=== PATIENT | male | born 1980 | race Caucasian/White ===

== ENCOUNTER 2016-04-20 07:48 | Emergency (ER) | payer BC ==
[2016-04-20] MEDS ORDERED: SODIUM CHLORIDE 0.9% 1,000 ML ONE (09:53)
== END 2016-04-20 12:32 | disposition home or self-care (01) ==
LOC: ER 07:48
DX: R55 Syncope and collapse (principal)
CPT/HCPCS: 36415; 70450; 80053; 81003; 82947; 85025; 96360; 96361